=== PATIENT | male | born 1995 | race Caucasian/White ===

== ENCOUNTER 2016-09-10 11:49 | Emergency (ER) | payer OTHER | END 2016-09-10 13:41 | disposition home or self-care (01) | DX: S50.01XA Contusion of right elbow, initial encounter (principal); W19.XXXA Unspecified fall, initial encounter ==

== ENCOUNTER 2016-10-06 11:56 | Emergency (ER) | payer OTHER | END 2016-10-06 13:29 | disposition home or self-care (01) | DX: S53.401A Unspecified sprain of right elbow, initial encounter (principal); V00.131A Fall from skateboard, initial encounter; Y93.51 Activity, roller skating (inline) and skateboarding ==

== ENCOUNTER 2016-10-26 13:19 | Outpatient (CLI) | payer OTHER ==
[2016-10-26] MEDS ORDERED: BUFFERED LIDOCAINE 10 ML SYRINGE IU ONE (14:30)
[2016-10-26] MEDS ORDERED: GADOPENTETATE DIMEGLUMINE 5 ML VIAL IVP ONE (14:30)
[2016-10-26] MEDS ORDERED: IOTHALAMATE MEGLUMINE 50 ML VIAL IVP SCH (14:30)
== END 2016-10-26 13:20 | disposition home or self-care (01) ==
DX: S53.431A Radial collateral ligament sprain of right elbow, initial encounter (principal); S56.511A Strain of other extensor muscle, fascia and tendon at forearm level, right arm, initial encounter
CPT/HCPCS: 20610; 73722; 77002; Q9961

== ENCOUNTER 2017-08-16 13:57 | Outpatient (CLI) | payer OTHER | END 2017-08-16 13:58 | disposition critical access hospital (66) | LOC: EMS 13:57 | PROVIDERS: ATTEND Surgery | DX: R56.9 Unspecified convulsions (principal) | CPT/HCPCS: A0425; A0427 ==

== ENCOUNTER 2017-08-16 14:13 | Emergency (ER) | payer OTHER ==
[2017-08-16 14:52] LABS: BASOPHILS # (AUTO) 0.2 10^3/uL (0.0-0.1); BASOPHILS % (AUTO) 1.3 %; EOSINOPHILS # (AUTO) 0.1 10^3/uL (0.0-0.7); EOSINOPHILS % (AUTO) 0.7 %; HCT - HEMATOCRIT 42.3 % (42.0-52.0); HGB - HEMOGLOBIN 14.4 g/dL (14.0-18.0); LYMPHOCYTES # (AUTO) 1.1 10^3/uL (1.5-3.5); LYMPHOCYTES % (AUTO) 8.6 %; MEAN CORPUSCULAR HEMOGLOBIN 29.9 pg (27.0-31.0); MEAN CORPUSCULAR HGB CONC 34.1 g/dL (32.0-36.0); MEAN CORPUSCULAR VOLUME 87.7 fL (80.0-94.0); MEAN PLATELET VOLUME 8.5 fL (7.4-11.4); MONOCYTES # (AUTO) 0.5 10^3/uL (0.0-1.0); NEUTROPHILS # (AUTO) 11.3 10^3/uL (1.5-6.6); NEUTROPHILS % (AUTO) 85.4 %; RED BLOOD COUNT 4.83 10^6/uL (4.70-6.10); RED CELL DISTRIBUTION WIDTH 12.6 % (12.0-15.0); UNCORRECTED WHITE BLOOD COUNT 13.2 x10^3/uL; WHITE BLOOD COUNT 13.2 x10^3/uL (4.8-10.8)
[2017-08-16 14:59] LABS: BILIRUBIN,URINE NEGATIVE (NEGATIVE)
[2017-08-16 15:01] LABS: UA w/ MICROSCOPIC CHARGE YES
[2017-08-16 15:09] LABS: ALBUMIN/GLOBULIN RATIO 1.6 (1.0-2.2); BILIRUBIN,TOTAL 0.8 mg/dL (0.2-1.0); BUN - BLOOD UREA NITROGEN 10 mg/dL (6-20); CALCIUM 9.8 mg/dL (8.5-10.3); CARBON DIOXIDE - CO2 24 mmol/L (21-32); CHLORIDE 102 mmol/L (101-111); CREATININE 0.9 mg/dL (0.6-1.2); GFR - MDRD 108 (>89); GLUCOSE 118 mg/dL (70-100); LIPASE 18 U/L (22-51); POTASSIUM 4.1 mmol/L (3.5-5.0); SALICYLATE < 6.0 mg/dL; SODIUM 140 mmol/L (135-145); TOTAL PROTEIN 7.6 g/dL (6.7-8.2)
[2017-08-16 15:11] LABS: SPERM,URINE PRESENT; UR CULTURE IF IND NOT INDICATED; WBC,URINE 0-3 /HPF (0-3)
--- NOTE | 2017-08-16 15:18 | ED Physician Documentation ---
PD HPI SEIZURE - Stated complaint Stated Complaint: SZ - Chief complaint Chief Complaint: Neuro - History obtained from History obtained from: Patient, Family, EMS - History of Present Illness Timing - onset: Today Witnessed: Witnessed Number of seizures: Single, Lasted minutes (2) Description of seizure activity: Generalized, Tonic clonic Injury during seizure: Bit tongue Pain level max: 3 Pain level now: 3 Associated symptoms: None History of seizures: First seizure Contributing factors: Substance abuse (ecstasy, xanax and marijuana) Treatment DATA CENTER OPERATOR: Other (none) Similar symptoms before: Has not had sx before Recently seen: Not recently seen Review of Systems Ten Systems: 10 systems reviewed and negative Constitutional: denies: Fever, Chills Eyes: denies: Decreased vision Ears: denies: Ear pain Nose: denies: Rhinorrhea / runny nose, Congestion Throat: denies: Sore throat Cardiac: denies: Chest pain / pressure Respiratory: denies: Cough GI: denies: Abdominal Pain, Nausea, Vomiting, Diarrhea Skin: denies: Rash Musculoskeletal: denies: Neck pain, Back pain Neurologic: denies: Headache PD PAST MEDICAL HISTORY - Past Medical History Past Medical History: Yes - Past Surgical History Past Surgical History: No - Present Medications Home Medications: Ambulatory Orders Medication Instructions Recorded Confirmed No Known Home Medications [No 08/16/17 08/16/17 Known Home Medications] - Allergies Allergies/Adverse Reactions: Allergies Allergy/AdvReac Type Severity Reaction Status Date / Time Sulfa (Sulfonamide Allergy Rash Verified 10/06/16 12:06 Antibiotics) - Social History Does the pt smoke?: No Smoking Status: Never smoker - Immunizations Immunizations are current?: Yes PD ED PE NORMAL - Vitals Vital signs reviewed: Yes - General General: Alert and oriented X 3, No acute distress, Well developed/nourished - HEENT HEENT: PERRL, Ears normal, Moist mucous membranes, Pharynx benign, Other ( abrasion to the L tongue) - Neck Neck: Supple, no meningeal sign, No bony TTP - Cardiac Cardiac: RRR, No murmur, Strong equal pulses - Respiratory Respiratory: No respiratory distress, Clear bilaterally - Abdomen Abdomen: Soft, Non tender, Non distended - Derm Derm: Warm and dry, No rash - Extremities Extremities: No deformity, No tenderness to palpate, Normal ROM s pain - Neuro Neuro: Alert and oriented X 3, 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, No motor deficit, No sensory deficit, Normal speech Eye Opening: Spontaneous Motor: Obeys Commands Verbal: Oriented GCS Score: 15 - Psych Psych: Normal mood, Normal affect Results - Vitals Vitals: Vital Signs - 24 hr 08/16/17 08/16/17 08/16/17 14:16 15:54 17:30 Temperature 36.5 C 36.7 C 36.9 C Heart Rate 96 68 64 Respiratory 17 20 11 L Rate Blood Pressure 137/66 H 128/65 129/61 O2 Saturation 98 99 99 Oxygen O2 Source Room air - Labs Labs: Laboratory Tests 08/16/17 08/16/17 08/16/17 14:42 14:42 14:45 WBC 13.2 H RBC 4.83 Hgb 14.4 Hct 42.3 MCV 87.7 MCH 29.9 MCHC 34.1 RDW 12.6 Plt Count 263 MPV 8.5 Neut # 11.3 H Lymph # 1.1 L Floyd # 0.5 Eos # 0.1 Baso # 0.2 H Absolute Nucleated RBC 0.00 Nucleated RBC % 0.0 Sodium 140 Potassium 4.1 Chloride 102 Carbon Dioxide 24 Anion Gap 14.0 H BUN 10 Creatinine 0.9 Estimated GFR (MDRD) 108 Glucose 118 H Calcium 9.8 Total Bilirubin 0.8 AST 29 ALT 32 Alkaline Phosphatase 59 Total Protein 7.6 Albumin 4.7 Globulin 2.9 Albumin/Globulin Ratio 1.6 Lipase 18 L Urine Color YELLOW Urine Clarity CLEAR Urine pH 7.0 Ur Specific Hampton 1.025 Urine Protein 30 H Urine Glucose (UA) NEGATIVE Urine Ketones NEGATIVE Urine Occult Blood NEGATIVE Urine Nitrite NEGATIVE Urine Bilirubin NEGATIVE Urine Urobilinogen 0.2 (NORMAL) Ur Leukocyte Esterase NEGATIVE Urine RBC None Seen Urine WBC 0-3 Ur Squamous Epith Cells NONE SEEN Amorphous Sediment Marked Urine Bacteria Few Urine Mucus Marked Strands Urine Sperm PRESENT Ur Microscopic Review INDICATED Urine Culture Comments NOT INDICATED Salicylates < 6.0 Urine Opiates Screen NEGATIVE Ur Oxycodone Screen NEGATIVE Urine Methadone Screen NEGATIVE Ur Propoxyphene Screen NEGATIVE Acetaminophen < 10 L Ur Barbiturates Screen NEGATIVE Ur Tricyclics Screen NEGATIVE Ur Phencyclidine Scrn NEGATIVE Ur Amphetamine Screen NEGATIVE U Methamphetamines Scrn NEGATIVE U Benzodiazepines Scrn POSITIVE H Urine Cocaine Screen NEGATIVE U Cannabinoids Screen POSITIVE H Ethyl Alcohol < 5.0 - Rads (name of study) Head CT Radiology: Prelim report reviewed, EMP read contemporaneously, See rad report ( No acute intracranial abnormality) PD MEDICAL DECISION MAKING - ED course Complexity details: reviewed results, re-evaluated patient, considered differential, d/w patient, d/w family, d/w workforce management consultant ED course: Patient is a 21-year-old male who presents to the emergency department with a single seizure today. Has been at baseline during his time in the emergency department. Has never had a seizure before. No recent trauma. He has been using ecstasy and Xanax on a regular basis. Has not used for the last couple of days since he has been visiting his family. Possible benzodiazepine withdrawal? Patient lives in [place], discussed the case with Dr. Kasey Isaacs , neurology at [facility] where he can be seen for follow-up but will require referral from his primary care provider as he has prime. This was discussed with the patient and his family. He is told not to drive Patient was also informed to not use drugs or benzodiazepines that are not prescribed to him. Patient and family counseled regarding signs and symptoms for which I believe and urgent re-evaluation would be necessary. Patient with good understanding of and agreement to plan and is comfortable going home at this time Departure - Departure Disposition: 01 Home, Self Care Clinical Impression: Seizure Condition: Good Instructions: ED Seizure New Onset Unk Cause Follow-Up: ESTIVEN OKEEFE [Primary Care Provider] - Within 1 week Comments: I spoke with neurology [facility] and they would like to see you in clinic, but usually requires a referral from your primary care doctor. The [facility] neurology clinic's phone number is . Do not drive or operate heavy machinery until released by neurology. You also should not take baths, only showers. Also stay away from benzodiazepenes like xanax as these may cause your seizures. Discharge Date/Time: 08/16/17 18:17
[2017-08-16 15:23] LABS: ACETAMINOPHEN < 10 ug/mL (10-30)
--- NOTE | 2017-08-16 16:20 | CT Preliminary Report ---
Exam: CT HEAD W/O IMPRESSION: Normal head CT. [facility] SITE ID: [id number]
--- NOTE | 2017-08-16 16:22 | CT Report ---
EXAM: CT HEAD EXAM DATE: 08/16/2017 03:40 PM. CLINICAL HISTORY: New onset seizure. COMPARISON: None. TECHNIQUE: Multiaxial CT images were obtained from the foramen magnum to the vertex. Reformats: Coron al. IV contrast: None. In accordance with CT protocol optimization, one or more of the following dose reduction techniques w ere utilized for this exam: automated exposure control, adjustment of mA and/or KV based on patient s ize, or use of iterative reconstructive technique. FINDINGS: Parenchyma: No intraparenchymal hemorrhage. No evidence of mass, midline shift, or CT findings of inf arction. Heard-white differentiation is distinct. Extraaxial Spaces: Normal for age. No subdural or epidural collections identified. Ventricles: Normal in size and position. Sinuses and Orbits: Minimal mucosal thickening in the bilateral ethmoid sinuses. Bilateral orbits viky ear unremarkable. Bones: No evidence of fracture or calvarial defect. IMPRESSION: Normal head CT. [facility] Referring Provider Line: [phone] SITE ID: [id number]
[2017-08-16 17:32] VITALS: BP 129/61
== END 2017-08-16 18:17 | disposition home or self-care (01) ==
LOC: EDUNIT# → EDBD → ED 14:13
DX: R56.9 Unspecified convulsions (principal)
CPT/HCPCS: 36415; 70450; 80053; 80306; 80307; 80320; 80329; 81001; 81003; 83690; 85025; 87086; 99284

== ENCOUNTER 2021-12-23 08:00 | Outpatient (CLI) | payer SELFPAY ==
--- NOTE | 2021-12-23 17:42 | XRAY Report ---
PROCEDURE: Elbow 3 View RT INDICATIONS: DISLOCATION OF R ULNOHUMERAL JOINT TECHNIQUE: 2 views of the elbow were acquired. COMPARISON: None available FINDINGS: Bones: There is complete anterior dislocation of the humerus relative to the colon radius with large joint effusion and loose bodies in the joint space. Soft tissues: Large elbow joint effusion IMPRESSION: Complete elbow joint dislocation with rounded intra-articular loose bodies and large joint effusion c an be further evaluated with CT. Reviewed by: Mac Sidhu MD on 12/23/2021 4:41 PM JUAN JOSÉ Approved by: Mac Sidhu MD on 12/23/2021 4:41 PM JUAN JOSÉ Station ID: [id number]
== END 2021-12-23 23:59 | disposition home or self-care (01) ==
LOC: DI.N 08:00
PROVIDERS: ATTEND Family Medicine
DX: S53.114A Anterior dislocation of right ulnohumeral joint, initial encounter (principal); M24.021 Loose body in right elbow; M25.421 Effusion, right elbow

== ENCOUNTER 2021-12-23 14:15 | Emergency (ER) | payer SELFPAY ==
--- NOTE | 2021-12-23 14:42 | ED Physician Documentation ---
PD HPI UPPER EXT INJURY - Stated complaint Stated Complaint: R ELBOW INJ - Chief complaint Chief Complaint: Trauma Ext - History obtained from History obtained from: Patient - History of Present Illness Location: Right, Elbow Type of injury: Fall (onto outstretched arm) Where injury occurred: Home Timing - onset: How many days ago (3) Timing - duration: Days (3) Worsened by: Moving, Palpating Associated symptoms: Swelling (right elbow). No: Weakness, Numbness Contributing factors: No: Prior ortho surgery Similar symptoms before: Diagnosis (has had elbow injury in the past with dislocation that reduced on its own. Has had recurrent pain in elbow with use, and unable to do some maneuvers such as throwing a ball or heavy lifting. Had MRI elbow in recent past showing ligament tears of the joint. Ortho at the time tried PT, not surgery.) Recently seen: Clinic (went to walk in for this and xray showed dislocation and possible fractures. Referred to ER.) Review of Systems Constitutional: denies: Fever, Chills Nose: denies: Rhinorrhea / runny nose, Congestion Throat: denies: Sore throat Respiratory: denies: Cough GI: denies: Abdominal Pain, Nausea, Vomiting Skin: denies: Abrasion (s), Laceration (s) Musculoskeletal: denies: Neck pain, Back pain Neurologic: denies: Focal weakness, Numbness PD PAST MEDICAL HISTORY - Past Medical History Past Medical History: Yes Cardiovascular: None Respiratory: None Neuro: None Endocrine/Autoimmune: None GI: GERD : None HEENT: None Psych: None Musculoskeletal: Other Derm: None - Past Surgical History Past Surgical History: No - Present Medications Home Medications: Ambulatory Orders Medication Instructions Recorded Confirmed HYDROcod/ACETAM 5/325 [[place] 5/325] 1 ea PO Q6H PRN #12 tablet 12/23/21 - Allergies Allergies/Adverse Reactions: Allergies Allergy/AdvReac Type Severity Reaction Status Date / Time Sulfa (Sulfonamide Allergy Rash Verified 12/23/21 14:21 Antibiotics) - Social History Does the pt smoke?: No Smoking Status: Never smoker Does the pt drink ETOH?: Yes ETOH Use: Other Does the pt have substance abuse?: Yes Substance Use and Type: Marijuana - Immunizations Immunizations are current?: Yes PD ED PE NORMAL - Vitals Vital signs reviewed: Yes - General General: Alert and oriented X 3, No acute distress, Well developed/nourished - Derm Derm: Normal color, Warm and dry - Extremities Extremities: Other (right elbow with tenderness and effusion, with deformity c/w posterior dislocation. Pain with any attempted ROM out of the 90 degree flexed it is in. ) - Neuro Neuro: Alert and oriented X 3, No motor deficit, No sensory deficit Results - Vitals Vitals: Vital Signs - 24 hr 12/23/21 12/23/21 12/23/21 14:22 16:35 17:05 Temperature 36.2 C L Heart Rate 63 63 68 Respiratory 18 12 11 L Rate Blood Pressure 121/77 134/91 H 140/83 H O2 Saturation 97 99 100 12/23/21 12/23/21 12/23/21 17:17 17:23 18:00 Temperature Heart Rate 65 88 63 Respiratory 15 18 12 Rate Blood Pressure 137/86 H 134/91 H O2 Saturation 100 99 12/23/21 18:13 Temperature Heart Rate 63 Respiratory 12 Rate Blood Pressure 134/91 H O2 Saturation 99 Oxygen O2 Source Room air - Rads (name of study) right elbow (Walk in) Radiology: Prelim report reviewed (posterior dislocation with small bone chips/calcifications.), See rad report right elbow post reduction Radiology: Prelim report reviewed (improved location. multiple small bone fracgments c/w bone fractures.), See rad report Procedures - Reduction Body part reduced: Right, Elbow Fracture or dislocation: Dislocation Elbow reduction technique: Traction counter traction Reduction aftercare: NV intact, Xray confirms reduction, Alignment improved, Sling, Patient tolerated well - Procedural sedation Sedation prep: Informed consent, Time out completed, Last meal (dinner last evening), PE performed, ASA 1 - healthy Sedation Medications: propofol Mallampati classification: I Patient status during sedation: Drowsy, Responds to tactile, Vitals remained stable, Maintained airway, Recovered uneventfully Sedation recovery: Recovered uneventfully, Back to baseline Time in sedation (Minutes): 15 PD MEDICAL DECISION MAKING - ED course Complexity details: reviewed results, considered differential, d/w patient, d/w family (mother) Departure - Departure Disposition: 01 Home, Self Care Clinical Impression: Accidental fall Qualifiers: Encounter type: initial encounter Qualified Code(s): W19.XXXA - Unspecified fall, initial encounter Dislocation, elbow closed Qualifiers: Encounter type: initial encounter Laterality: right Qualified Code(s): S53.104A - Unspecified dislocation of right ulnohumeral joint, initial encounter Condition: Stable Record reviewed to determine appropriate education?: Yes Instructions: ED Dislocated Elbow Follow-Up: aDvon Curiel MD [Provider Admit Priv/Credential] - Prescriptions: HYDROcod/ACETAM 5/325 [[place] 5/325] 1 ea PO Q6H PRN #12 tablet PRN Reason: Pain Comments: No activity with the right arm and elbow for the next 2 to 3 weeks and less other heath allowed by the orthopedics. Follow-up with orthopedics in about a week, call for an appointment. Use the sling to help support the elbow. The slight bit of range of motion allowed by that we will should help keep the joint from stiffening up. Elevate ice and rest your elbow often to reduce swelling over the next several days. Anti-inflammatory such as ibuprofen or naproxen 3 times daily with food for the next week. Add Tylenol every 4-6 hours if needed for pain. Add hydrocodone if needed for worse pain. I wrote a prescription for small amount and transmitted it to [facility] pharmacy. I am prescribing a short course of narcotic pain medication for you. These are potentially dangerous and addictive medications that should be used carefully. These medications may constipate you. Take an [id number] stool softener such as docusate twice daily with plenty of water while taking these medications. If you go 24 hours without a bowel movement, take zopw-[id number]-[id number] MiraLAX, per package instructions. Do not drink or drive while taking these medications. If you received narcotic or sedating medications while in the emergency department do not drive for 24 hours. Store this medication in a safe, secure place and out of reach of children. It is a violation of federal law to give or sell this medication to another person or to use in a manner other than prescribed. The ED will not refill narcotic prescriptions, including prescriptions lost or stolen. You can dispose of unwanted medications at the [facility]'s office or at several pharmacies such as [facility]. Discharge Date/Time: 12/23/21 18:12
[2021-12-23] MEDS ORDERED: KETOROLAC 30 MG/ML VIAL IVP STA (14:58)
[2021-12-23] MEDS ORDERED: HYDROmorphone 1 MG/ML CARPUJECT IVP STA (14:58)
[2021-12-23] MEDS ORDERED: SODIUM CHLORIDE 0.9% 1,000 ML IV STA (15:01)
--- OUTSIDE RECORDS SUMMARY | 2021-12-23 15:43 | EXTERNAL MEDICAL SUMMARY RPT | Continuity of Care Document ---
:1995 Author Organization [facility] Address [address] [place] [address] Phone Care Team Providers Name Role Phone Familia CUNNINGHAM Unavailable Unavailable Allergies No information. Encounters No information. Medications No information. Problems date description facility 20211223 Unspecified dislocation of right ulnohu meral joint, initial All encounter 20211223 ELBOW COMPLETE 3VW All 20211223 Closed right elbow dislocation All Results No information. Vital Signs date measurement value source 20211223 weight_standard 194.2 lb 20211223 weight_metric 88.09 kg 20211223 temperature_standard 98.4 F 20211223 temperature_metric 36.89 C 20211223 respiration_rate 12 /min 20211223 height_standard 74 in 20211223 height_metric 187.96 cm 20211223 heart_rate 72 /min 20211223 BP_systolic 149 mm[Hg] 20211223 BP_diastolic 84 mm[Hg] 20211223 BMI 25.02 kg/m2
[2021-12-23] MEDS ORDERED: PROPOFOL 200 MG/20 ML VIAL IVP STA (17:15)
[2021-12-23] MEDS: PROPOFOL 200 MG/20 ML VIAL IVP STA ×2 (17:24→17:27)
[2021-12-23 18:13] VITALS: BP 134/91
--- NOTE | 2021-12-23 18:43 | XRAY Report ---
PROCEDURE: Elbow 2 View RT INDICATIONS: post reduction TECHNIQUE: 4 views of the elbow were acquired. COMPARISON: 12/23/2021 at 1347 hours FINDINGS: Bones: The dislocation involving the ulna and humerus has been reduced. It is not definite that the r adial head dislocation is completely reduced. There are multiple bony fragments which may represent f racture fragments. There is an elbow joint effusion. Soft tissues: Positive elbow joint effusion. Multiple intra-articular bodies, possibly fracture fragm ents. IMPRESSION: Satisfactory reduction of articulation between the humerus and ulna. The location of the radial head related to the joint is less definite. Loose bodies versus fracture fragments. Consider CT elbow for more definitive evaluation. Reviewed by: Avni Estes MD on 12/23/2021 6:42 PM PDT Approved by: Avni Estes MD on 12/23/2021 6:42 PM PDT Station ID: [id number]
== END 2021-12-23 18:12 | disposition home or self-care (01) ==
LOC: ED 14:15
DX: S53.104A Unspecified dislocation of right ulnohumeral joint, initial encounter (principal); W19.XXXA Unspecified fall, initial encounter; Y92.009 Unspecified place in unspecified non-institutional (private) residence as the place of occurrence of the external cause
CPT/HCPCS: 24605; 73070; 96374; 96375; 99152; 99283; 99285; J1170; 94770